=== PATIENT | male | born 1975 | race Caucasian/White ===

== ENCOUNTER 2018-07-11 20:51 | Outpatient (REF) | payer OTHER, SELFPAY ==
[2018-07-11 21:07] LABS: Anion Gap 11.1 mmol/L (3-11); BUN 16 mg/dL (7-18); CO2 30.9 mmol/L (21.0-32.0); Calcium 9.8 mg/dL (8.5-10.1); Chloride 99 mmol/L (98-107); Cholesterol 182 mg/dL (50-200); Glucose 88 mg/dL (70-100); HDL Cholesterol 47 mg/dL (40-60); LDL CHOLESTEROL 115 mg/dL (<100); Potassium 3.8 mmol/L (3.5-5.1); Sodium 141 mmol/L (136-145); Triglyceride 80 mg/dL (30-150)
== END 2018-07-11 21:11 ==
LOC: NCHCN 20:51
PROVIDERS: PCP Nurse Practitioner Family; Visit Provider Physician Assistant Medical
DX: Z00.00 Encounter for general adult medical examination without abnormal findings (principal); Z13.220 Encounter for screening for lipoid disorders; Z13.228 Encounter for screening for other metabolic disorders
CPT/HCPCS: 80048; 80061; 83721

== ENCOUNTER 2018-07-19 12:54 | Outpatient (CLI) | payer OTHER, SELFPAY ==
--- NOTE | 2018-07-19 11:54 | DI.RAD_ITS ---
SYMPTOMS/DIAGNOSIS: BILATERAL ARM AND HAND NUMBNESS CERVICAL SPINE: Odontoid, AP, lateral and bilateral oblique views. There are no priors for comparison. The odontoid is intact. The lateral masses are well aligned. There is normal alignment of the cervical spine. The vertebral bodies, disc spaces and posterior elements are all well maintained. The prevertebral soft tissues are unremarkable. No significant neural foraminal encroachment is present. IMPRESSION: Negative examination. If there concern for radicular systems, an MRI should be considered for further evaluation.
== END 2018-07-19 13:14 ==
PROVIDERS: PCP Nurse Practitioner Family; Visit Provider Nurse Practitioner Family
DX: R20.0 Anesthesia of skin (principal)
CPT/HCPCS: 72050

== ENCOUNTER 2019-02-15 09:41 | Outpatient (CLI) | payer OTHER, SELFPAY ==
--- NOTE | 2019-02-15 09:14 | HPE_ITS ---
Assessment and Plan Assessment and plan (1) Cubital tunnel syndrome, bilateral: Status: Acute Assessment and plan: Plan: Educated patient on surgery covering surgical technique, recovery process, benefits and risks including but not limited to risk of infection, blood clot, damage to soft tissue/blood vessels/nerves in detail. After discussion patient gives verbal understanding of risks and elects to proceed with scheduling surgery. Patient had opportunity to have questions answered to their satisfaction. They will contact office if issues arise. Patient will continue to be scheduled for left ulnar nerve decompression and likely transposition followed approximately 2 weeks later by right ulnar nerve decompression and likely transposition with Dr. Vasques. History of Present Illness Narrative: Mr. Ledbetter is a 43-year-old right hand dominant male who presents to clinic for preoperative exam for ulnar nerve decompression and likely transposition of the left arm shortly followed by right. Patient reports bilateral hand numbness and tingling that has been present for ~8 years. States over the past few months the symptoms have become more constant. 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 Additionally states his hands get tired with work more quickly. Reports he will drop coffee cups if not bracing his hands within the handle, difficulty opening a soda bottle and overall decreased protection analyst. Denies any injuries or trauma. Tried to wear braces at night but due to irritation discontinued. He is unable to rest his arms on armrests due to increased symptoms. Due to his continued symptoms he elected to proceed with surgery. Pertinent Surgical Information Patient reports yearly sinus infections. States currently being treated with azithromycin and will finish course tomorrow. Patient's current symptoms include dry cough as well as clear nasal discharge. States he has improved since starting his antibiotic. Patient denies any additional symptoms currently including fevers, phlegm, sore throat or respiratory symptoms. Denies past medical history of: stroke, cardiac issues, angina, asthma, COPD, sleep apnea, renal issues, liver issues, hepatitis, gastrointestinal issues, ulcers, hyperlipidemia, bleeding disorders, seizures, migraines, anxiety, depression, diabetes, thyroid issues Denies prior complications from surgery or anesthesia. Review of Systems Constitutional Constitutional: Denies fever(s), Denies frequent falls and Denies headache(s) Eyes Eyes: Denies change in vision ENT Ears, Nose, Mouth, and Throat: Denies dizziness, Denies ear discharge, Denies headache(s), Denies epistaxis, Reports nasal discharge (clear discharge seasonally; worse due to current sinus infection) and Denies sore throat Cardiovascular Cardiovascular: Denies chest pain, Denies rapid heart rate, Denies irregular heart rhythm, Denies palpitations, Denies dyspnea, Denies dyspnea on exertion, Denies orthopnea, Denies paroxysmal nocturnal dyspnea and Denies slow heart rate Respiratory Respiratory: Reports cough (current sinus infection; on azithromycin), Denies dyspnea, Denies dyspnea on exertion and Denies wheezing Gastrointestinal Gastrointestinal: Denies abdominal pain, Denies melena, Denies hematochezia, Denies constipation, Denies diarrhea, Denies nausea and Denies vomiting Genitourinary Genitourinary: Denies hematuria, Denies dysuria and Denies urinary urgency Musculoskeletal Musculoskeletal: Reports as per HPI, Reports numbness and Reports tingling Neurologic Neurologic: Denies dizziness, Denies frequent falls, Denies headache(s), Reports numbness and Reports tingling Psychiatric Psychiatric: Denies anxiety and Denies depression Endocrine Endocrine: Denies palpitations Allergic/Immunologic Allergic/Immunologic: Denies wheezing [facility] Medical History Cubital tunnel syndrome, bilateral (Acute) Hypertension (Chronic) Osteogenesis imperfecta Tobacco abuse (Acute) Surgical History (Updated 02/15/19 @ 09:21 by Rosalia Marr) Fracture of middle phalanx of finger of left hand (Inactive 06/02/15) little finger treated with pins Social History (Updated 02/15/19 @ 09:23 by Rosalia Marr) Smoking/Tobacco Use Status: Current every day Tobacco: How many years used: 30 Alcohol Intake: current Alcohol Intake frequency: 0-2 drinks per day Drug use: Never Current gender identity: male Seatbelt use: always Meds Home Medications and Allergies Home Medications Medication Instructions Recorded Confirmed Type multivitamin [One Daily] 1 ea PO DAILY 06/02/15 12/11/18 History chlorthalidone 25 mg tablet 25 mg PO DAILY 02/16/18 12/11/18 History ibuprofen 800 mg tablet 800 mg PO TID #42 tab 07/20/18 12/11/18 Rx azithromycin 250 mg tablet 250 mg PO DAILY 02/15/19 02/15/19 History doxazosin 2 mg tablet 2 mg PO DAILY 02/15/19 02/15/19 History Allergies Allergy/AdvReac Type Severity Reaction Status Date / Time red dye Allergy Mild hives Uncoded 02/15/19 09:24 Exam Const General: cooperative and no acute distress [facility] Head: normal to inspection, normocephalic and atraumatic Ears: external ears normal General nose exam: external nose normal and no nasal discharge Face and sinus: face symmetric Mouth: oral mucosae normal, lip normal, tongue normal and moist mucous membranes Teeth and gingiva: fair dentition Throat: posterior oropharynx normal (no erythema or exudates) Eyes General: appearance normal, both eyes and all related structures Pupils: PERRL EOM: EOM intact bilaterally Neck Neck: trachea midline Carotids: normal carotid upstroke Lymphatic: no lymphadenopathy noted Resp Effort & Inspection: normal respiratory effort and able to speak in complete sentences Auscultation: clear to auscultation bilaterally, no rales, no rhonchi and no wheezes Cardio Heart Sounds: S1 normal, S2 normal and no murmurs Pulses: radial pulses present bilaterally GI Palpation: soft, no hepatosplenomegaly and nontender Auscultation: normal bowel sounds Skin General skin exam: no rashes or lesions noted
== END 2019-02-15 10:01 ==
PROVIDERS: PCP Physician Assistant Medical; Visit Provider Student in an Organized Health Care Education/Training Program
DX: G56.23 Lesion of ulnar nerve, bilateral upper limbs (principal); Z01.818 Encounter for other preprocedural examination
CPT/HCPCS: NC

== ENCOUNTER 2019-02-21 09:19 | Day surgery (SDC) | payer OTHER, SELFPAY ==
[2019-02-15 10:35] VITALS: BP 125/89; PULSE 74; RESP 18; TEMP 37.5; O2SAT 98
--- NOTE | 2019-02-21 07:39 | PDOC.DSDIS_ITS ---
Documented by User: Rosalia Marr 02/21/19 07:44 Discharge Plan Disposition Patient Disposition: HOME Condition: Good Discharge Details Reason For Visit: Left cubital tunnel syndrome Attending Provider: Omid Vasques Primary Care Provider: Sarah Rosales Home Meds and New Rx's Prescriptions: New hydrocodone-acetaminophen 5-325 mg tablet 1 tab PO Q6H PRN (Reason: severe pain) Qty: 14 RF: 0 acetaminophen 500 mg tablet 500 mg PO Q6H PRN (Reason: pain) Qty: 60 RF: 2 ibuprofen 600 mg tablet 600 mg PO TID PRN (Reason: pain) Qty: 60 RF: 2 Continued ibuprofen 800 mg tablet 800 mg PO TID Qty: 42 RF: 0 doxazosin 2 mg tablet 2 mg PO HS RF: 0 multivitamin [One Daily] 1 EACH tablet 1 ea PO DAILY RF: 0 Discontinued azithromycin 250 mg tablet 250 mg PO DAILY RF: 0 Discharge Instructions Additional Instructions: Activity: You should stay in the sling for the first 2 weeks. You may come out of the sling for gentle motion and hygiene but should largely remain in the sling to allow the incision site to heal. Gentle motion of the elbow, hand, wrist, and fingers is okay and encouraged after the first few days, but no repetitive activities nor heavy lifting. You may apply ice. Medications: - You should take Tylenol and Ibuprofen around the clock. - You have been prescribed Hydrocodone for breakthrough pain. Dressings: - The initial surgical dressing should stay in place for 3 days. It may then be removed and kept clean and dry. You should cover with a light gauze dressing. - You may shower after 3 days and get the wound wet. Follow-up: 10-14 days Referrals: Omid Vasques MD [ [facility] STAFF PHYSICIAN] - Equipment/Supplies: Sling Activity:: Activity as Tolerated Remove Dressings/Wound Care:: 72 hours Shower/Bathe:: 72 hours Diet:: As Tolerated Discharge Orders Discharge Orders: Discharge Order (Routine); Ordered 02/21/19 Ordered By: Rosalia Marr DS: Diagnosis Discharge Diagnosis (1) Cubital tunnel syndrome on left: Status: Acute Documented by User: Omid Vasques MD 02/21/19 10:43 Discharge Plan Disposition Patient Disposition: HOME Condition: Good Discharge Details Reason For Visit: Left cubital tunnel syndrome Attending Provider: Omid Vasques Primary Care Provider: Sarah Rosales Home Meds and New Rx's Prescriptions: New hydrocodone-acetaminophen 5-325 mg tablet 1 tab PO Q6H PRN (Reason: severe pain) Qty: 14 RF: 0 acetaminophen 500 mg tablet 500 mg PO Q6H PRN (Reason: pain) Qty: 60 RF: 2 ibuprofen 600 mg tablet 600 mg PO TID PRN (Reason: pain) Qty: 60 RF: 2 Continued ibuprofen 800 mg tablet 800 mg PO TID Qty: 42 RF: 0 doxazosin 2 mg tablet 2 mg PO HS RF: 0 multivitamin [One Daily] 1 EACH tablet 1 ea PO DAILY RF: 0 Discontinued azithromycin 250 mg tablet 250 mg PO DAILY RF: 0 Discharge Instructions Additional Instructions: Activity: You should stay in the sling for the first 2 weeks. You may come out of the sling for gentle motion and hygiene but should largely remain in the sling to allow the incision site to heal. Gentle motion of the elbow, hand, wrist, and fingers is okay and encouraged after the first few days, but no repetitive activities nor heavy lifting. You may apply ice. Medications: - You should take Tylenol and Ibuprofen around the clock. - You have been prescribed Hydrocodone for breakthrough pain. Dressings: - The initial surgical dressing should stay in place for 3 days. It may then be removed and kept clean and dry. You should cover with a light gauze dressing. - You may shower after 3 days and get the wound wet. Follow-up: 10-14 days Referrals: Omid Vasques MD [ [facility] STAFF PHYSICIAN] - Equipment/Supplies: Sling Activity:: Activity as Tolerated Remove Dressings/Wound Care:: 72 hours Shower/Bathe:: 72 hours Diet:: As Tolerated Discharge Orders Discharge Orders: Discharge Order (Routine); Ordered 02/21/19 Ordered By: Rosalia Marr
[2019-02-21 09:30] VITALS: BP 135/98; PULSE 73; RESP 18; TEMP 36.6; O2SAT 100
[2019-02-21] MEDS: Lactated Ringers 1,000 ML 80 ML IV (09:55)
[2019-02-21] MEDS: ceFAZolin 2 GM/50 ML BAG IVPB (11:10)
[2019-02-21 11:49] VITALS: BP 109/56; PULSE 82; RESP 14; TEMP 36.8; O2SAT 96
[2019-02-21 11:54] VITALS: BP 122/77; PULSE 81; RESP 14; TEMP 36.8; O2SAT 98
[2019-02-21 11:59] VITALS: BP 123/78; PULSE 74; RESP 11; TEMP 36.8; O2SAT 98
[2019-02-21 12:10] VITALS: BP 131/81; PULSE 76; RESP 12; TEMP 36.8; O2SAT 99
[2019-02-21 12:52] VITALS: BP 121/85; PULSE 70; RESP 16; TEMP 37.1; O2SAT 98
--- NOTE | 2019-02-21 22:36 | W.PM.OP ---
Date of service: 02/21/19 Time of Service: 13:36 Operative Note Operative Note DATE OF PROCEDURE: 02/21/19 PRE-OP DIAGNOSIS: Left cubital tunnel syndrome POST-OP DIAGNOSIS: same PROCEDURE: Left Cubital Tunnel Decompression SURGEON: Omid Vasques COMMUNICATIONS EXECUTIVE: Silvana Thurman ANESTHESIA: GETA ESTIMATED BLOOD LOSS: 0 PATHOLOGY: none sent TOURNIQUET TIME: 20 COMPLICATIONS: None Patient was transported to: PACU Patient's condition: stable Indications: Babak is a 43-year-old male who has had symptoms of cubital tunnel syndrome. Nonoperative treatment options had been trialed. Nerve conduction studies identified the cubital tunnel as the point of compression. Given failure of nonoperative treatments and persistent symptoms, I offered operative intervention. I reviewed the technical details of a cubital tunnel decompression with possible anterior subcutaneous transposition. I reviewed the risk of the procedure to include bleeding, infection, pain, stiffness, tendon instability, damage to the superficial radial nerve, and complete release. Despite these risks, the patient elected to proceed. Findings: There was a tightened cubital tunnel. The ulnar nerve was release from the first motor branch distally through the [place] proximally. Procedure Description: Babak was greeted in the preoperative holding area. Name and surgical site were confirmed. The history and physical was completed. The consent was reviewed the patient and signed. He was taken back to the operating room. The patient was placed in the supine positioned and a general anesthetic was administered. The left arm was then prepped with ChloraPrep and draped in a standard fashion after a nonsterile tourniquet was placed high up into the axilla of the arm. Prophylactic antibiotics in the form of cefazolin were administered. A timeout was performed for safe surgery. The surgical site was drawn on the skin as was the lateral epicondyle borders. The planned surgical field was anesthetized with 0.25% bupivacaine with epinephrine. The limb was exsanguinated and the tourniquet was inflated where it stayed for 20 minutes. A 8 cm incision was made curvilinearly around the medial elbow. The skin was incised only. The deep tissue subcutaneous fat was dissected with a tenotomy scissors trying to protect any branches of the medial antebrachial cutaneous nerve. Any branches that were identified were retracted out of the way. The ulnar nerve was palpated and identified. A small window into the cubital tunnel was created and the nerve is able to be palpated with the [place]. A Metzenbaum scissor was then used to open up the she is starting with the Camara's ligament. I then worked distal over the ulnar nerve releasing any constraints against the nerve all the way to the fascia of the FCU muscle belly. This muscle belly was bluntly all the way down to the first motor branch of the ulnar nerve. Likewise starting there at the lateral condyle proceeded working proximally to release any constraints over the ulnar nerve. This was taken all the way to the arcade of [place]. The medial intermuscular septum was also palpated in any sharp edges against the ulnar nerve were resected. After fully releasing the nerve it was inspected visually. I was also able to palpate the nerve fully and reach one finger up into the proximal distal aspects to make sure there is no constraints against the nerve. A freer elevator was also used to slide easily against the ulnar nerve without any points of constriction. The arm was then taken through range of motion. The ulnar nerve did not sublux/dislocate out of its groove behind the lateral epicondyle. Therefore, no transposition was performed. The tourniquet was then deflated. Any areas of bleeding were cauterized with bipolar electrocautery. The wound was thoroughly irrigated. The deep tissue was closed with a 3-0 Vicryl. The skin was closed with a 4-0 nylon. The wound was dressed with Xeroform, 4 x 4's, ABD, Kerlix and an Vamsi wrap. She was placed into a sling. The patient was transferred back to same day surgery area in stable condition.
== END 2019-02-21 13:14 | disposition home or self-care (01) ==
LOC: SUR 09:19
PROVIDERS: PCP Physician Assistant Medical; Visit Provider Student in an Organized Health Care Education/Training Program
PROC: (CPT 64718; principal; 2019-02-21 11:45)
DX: G56.22 Lesion of ulnar nerve, left upper limb (principal); Y99.0 Civilian activity done for income or pay
CPT/HCPCS: 64718; J0690; J2001; J2250; J2704; J3010; L3650

== ENCOUNTER 2019-04-04 08:33 | Day surgery (SDC) | payer OTHER, SELFPAY ==
--- NOTE | 2019-04-04 07:27 | PDOC.DSDIS_ITS ---
Discharge Plan Disposition Patient Disposition: HOME Condition: Good Discharge Details Reason For Visit: right cubital tunnel syndrome Attending Provider: Omid Vasques Primary Care Provider: Sarah Rosales Home Meds and New Rx's Prescriptions: New hydrocodone-acetaminophen 5-325 mg tablet 1 tab PO Q6H PRN (Reason: severe postoperative pain) Qty: 12 RF: 0 acetaminophen 500 mg tablet 500 mg PO Q6H PRN (Reason: pain) Qty: 60 RF: 2 ibuprofen 600 mg tablet 600 mg PO TID PRN (Reason: pain) Qty: 60 RF: 2 Continued acetaminophen 500 mg tablet 500 mg PO Q6H PRN (Reason: pain) Qty: 60 RF: 2 ibuprofen 600 mg tablet 600 mg PO TID PRN (Reason: pain) Qty: 60 RF: 2 ibuprofen 800 mg tablet 800 mg PO TID Qty: 42 RF: 0 doxazosin 2 mg tablet 2 mg PO HS RF: 0 multivitamin [One Daily] 1 EACH tablet 1 ea PO DAILY RF: 0 Discontinued hydrocodone-acetaminophen 5-325 mg tablet 1 tab PO Q6H MDD 20 mg PRN (Reason: severe pain) Qty: 14 RF: 0 Discharge Instructions Additional Instructions: Activity: You should stay in the sling for the first 2 weeks. You may come out of the sling for gentle motion and hygiene but should largely remain in the sling to allow the incision site to heal. Gentle motion of the elbow, hand, wrist, and fingers is okay and encouraged after the first few days, but no repetitive activities nor heavy lifting. You may apply ice. Medications: - You should take Tylenol and Ibuprofen around the clock. - You have been prescribed Hydrocodone for breakthrough pain. Dressings: - The initial surgical dressing should stay in place for 3 days. It may then be removed and kept clean and dry. You should cover with a light gauze dressing. - You may shower after 3 days and get the wound wet. Follow-up: 10-14 days Referrals: Omid Vasques MD [ [facility] STAFF PHYSICIAN] - Equipment/Supplies: Sling Activity:: Elevate Remove Dressings/Wound Care:: 72 hours Shower/Bathe:: 72 hours Diet:: As Tolerated Discharge Orders Discharge Orders: Discharge Order (Routine); Ordered 02/19/20 Ordered By: Rosalia Marr DS: Diagnosis Discharge Diagnosis (1) Cubital tunnel syndrome on right: Status: Acute
[2019-04-04 08:40] VITALS: BP 126/90; PULSE 67; RESP 17; TEMP 37; O2SAT 100
[2019-04-04] MEDS: Lactated Ringers 1,000 ML 80 ML IV (09:11)
[2019-04-04] MEDS: ceFAZolin 2 GM/50 ML BAG IVPB (10:03)
[2019-04-04] MEDS: Bupivacaine 0.25% Pres-Free 30 ML VIAL (10:49)
[2019-04-04 11:02] VITALS: BP 123/89; PULSE 78; RESP 14; TEMP 36.4; O2SAT 99
[2019-04-04 11:07] VITALS: BP 125/90; PULSE 78; RESP 13; TEMP 36.4; O2SAT 99
[2019-04-04 11:12] VITALS: BP 137/87; PULSE 74; RESP 15; TEMP 36.4; O2SAT 100
[2019-04-04 11:26] VITALS: BP 136/97; PULSE 74; RESP 12; TEMP 36.5; O2SAT 100
[2019-04-04 12:03] VITALS: BP 124/85; PULSE 73; RESP 16; TEMP 36.5; O2SAT 98
--- NOTE | 2019-04-05 06:44 | ROE_ITS ---
Date of service: 04/04/19 Time of Service: 11:44 Operative Note Operative Note DATE OF PROCEDURE: 04/04/19 PRE-OP DIAGNOSIS: Right Cubital Tunnel Syndrome POST-OP DIAGNOSIS: same PROCEDURE: Right In Situ Cubital Tunnel Decompression SURGEON: Omid Vasques INFORMATION SYSTEMS OPERATOR: Rosalia Marr ANESTHESIA: ALLEN ESTIMATED BLOOD LOSS: 0 PATHOLOGY: none sent TOURNIQUET TIME: 14 COMPLICATIONS: None Patient was transported to: PACU Patient's condition: stable Indications: Babak is a 44yo male who has had symptoms of cubital tunnel syn drome. Nonoperative treatment options had been trialed. Nerve conduction studies identified the cubital tunnel as the point of compression. Given failure of nonoperative treatments and persistent symptoms, I offered operative intervention. I reviewed the technical details of a cubital tunnel decompression with possible anterior subcutaneous transposition. I reviewed the risk of the procedure to include bleeding, infection, pain, stiffness, tendon instability, damage to the superficial radial nerve, and complete release. Despite these risks, the patient elected to proceed. Findings: There was a tightened cubital tunnel. The ulnar nerve was release from the first motor branch distally through the [place] proximally. Procedure Description: Babak was greeted in the preoperative holding area. Name and surgical site were confirmed. The history and physical was completed. The consent was reviewed the patient and signed. He was taken back to the operating room. The patient was placed in the supine positioned and a general anesthetic was administered. The right was then prepped with ChloraPrep and draped in a standard fashion after a nonsterile tourniquet was placed high up into the axilla of the arm. Prophylactic antibiotics in the form of cefazolin were administered. A timeout was performed for safe surgery. The surgical site was drawn on the skin as was the lateral epicondyle borders. The planned surgical field was anesthetized with 0.25% bupivacaine with epinephrine. The limb was exsanguinated and the tourniquet was inflated where it stayed for 14 minutes. A 6 cm incision was made curvilinearly around the medial elbow. The skin was incised only. The deep tissue subcutaneous fat was dissected with a tenotomy scissors trying to protect any branches of the medial antebrachial cutaneous nerve. Any branches that were identified were retracted out of the way. The ulnar nerve was palpated and identified. A small window into the cubital tunnel was created and the nerve is able to be palpated with the [place]. A Metzenbaum scissor was then used to open up the she is starting with the Camara's ligament. I then worked distal over the ulnar nerve releasing any constraints against the nerve all the way to the fascia of the FCU muscle belly. This muscle belly was bluntly all the way down to the first motor branch of the ulnar nerve. Likewise starting there at the lateral condyle proceeded working proximally to release any constraints over the ulnar nerve. This was taken all the way to the arcade of [place]. The medial intermuscular septum was also palpated in any sharp edges against the ulnar nerve were resected. After fully releasing the nerve it was inspected visually. I was also able to palpate the nerve fully and reach one finger up into the proximal distal aspects to make sure there is no constraints against the nerve. A freer elevator was also used to slide easily against the ulnar nerve without any points of constriction. The arm was then taken through range of motion. The ulnar nerve did not sublux/dislocate out of its groove behind the lateral epicondyle. Therefore, no transposition was performed. The tourniquet was then deflated. Any areas of bleeding were cauterized with bipolar electrocautery. The wound was thoroughly irrigated. The deep tissue was closed with a 3-0 Vicryl. The skin was closed with a 4-0 nylon. The wound was dressed with Xeroform, 4 x 4's, ABD, Kerlix and an Vamsi wrap. She was placed into a sling. The patient was transferred back to same day surgery area in stable condition.
== END 2019-04-04 12:39 | disposition home or self-care (01) ==
LOC: SUR 08:33
PROVIDERS: PCP Physician Assistant Medical; Visit Provider Student in an Organized Health Care Education/Training Program
PROC: (CPT 64718; principal; 2019-04-04 10:15)
DX: G56.21 Lesion of ulnar nerve, right upper limb (principal)
CPT/HCPCS: 64718; J0690; J1100; J1885; J2001; J2250; J2405; J2704; J3010

== ENCOUNTER 2020-05-21 02:04 | Outpatient (CLI) | payer OTHER, SELFPAY ==
--- NOTE | 2020-05-21 14:06 | DI.RAD_ITS ---
EXAM: XR HIP LT AP LAT ONLY CLINICAL HISTORY: LT HIP PAIN. TECHNIQUE: 2D digital imaging was performed. COMPARISON: No exams were available for comparison FINDINGS: There is mild hip joint space narrowing. There is mild acetabular spurring. No soft tissue calcific ations are seen. IMPRESSION: Mild degenerative changes. DATA REPOSITORY: RADIATION DOSE DELIVERED:
== END 2020-05-21 02:24 ==
PROVIDERS: PCP Physician Assistant Medical; Visit Provider Chiropractor Orthopedic
DX: M25.552 Pain in left hip (principal); M16.12 Unilateral primary osteoarthritis, left hip
CPT/HCPCS: 73502

== ENCOUNTER 2020-06-05 14:12 | Inpatient (IN) | payer OTHER, SELFPAY ==
[2020-06-05] VITALS (29 sets, daily range): BP systolic 143–179; BP diastolic 91–110; PULSE 62–111; RESP 9–45; TEMP 36.4–36.7; O2SAT 93–99
--- NOTE | 2020-06-05 14:45 | DI.RAD_ITS ---
EXAM: XR FEMUR LT . CLINICAL HISTORY: fall/pain. TECHNIQUE: 2D digital imaging was performed. COMPARISON: No exams were available for comparison FINDINGS: There is a subcapital fracture of the left hip. Right hip appears unremarkable. No other obvious pelvic fractures IMPRESSION: Subcapital fracture left hip. DATA REPOSITORY: RADIATION DOSE DELIVERED:
--- NOTE | 2020-06-05 14:49 | DI.RAD_ITS ---
EXAM: XR PELVIS AP CLINICAL HISTORY: fall/pain. TECHNIQUE: 2D digital imaging was performed. COMPARISON: No exams were available for comparison FINDINGS: There is a subcapital fracture of the left hip. Right hip unremarkable. No other pelvic fractures s een although the patient appears slightly rotated. IMPRESSION: Left hip subcapital fracture. DATA REPOSITORY: RADIATION DOSE DELIVERED:
--- NOTE | 2020-06-05 15:00 | RT.EKG_ITS ---
APPROVED REPORT Exam: Resting ECG Patient Location: E HR:93 bpm ECG Measurements Heart Rate 93 AXIS NC 163 P 76 QRSd 95 QRS 169 QT 348 T 49 QTc 434 Conclusion Sinus rhythm...normal P axis, V-rate 60- 99 Right axis deviation...QRS axis (100,269)
--- NOTE | 2020-06-05 15:11 | W.ED.GENAD ---
Discharge Plan Disposition Patient Disposition: STILL A PATIENT Condition: Serious Discharge Details Clinical Impression: Fracture of left hip Primary Care Provider: Sarah Rosales ED Provider: Zeina Sahu Home Meds and New Rx's Prescriptions: No Action naproxen sodium [Aleve] 220 mg capsule 440 mg PO BID PRNRF: 0 Medical Decision Making <PAULO Marquez - Last Filed: 06/05/20 15:51> 45-year-old male with osteogenesis imperfecta presents complaining of left hip pain status post mechanical slip and fall. Denies any other distracting injuries. Given his abrasions, will update his tetanus today. Given his shortening and external rotation, high suspicion of fracture. Will obtain hip, pelvis, femur x-ray. Obtain IV access, routine laboratory values, IV fluid and IV Dilaudid X-rays reveal a left femoral neck fracture. Discussed x-ray findings with patient Case discussed with Dr. Vasques who is agreeable to admission but we need to check the bed status. I spoke with our housekeeper and laundry assistant and it is unclear whether a bed is available, will likely know more in the next hour or so. I did update Dr. Vasques on the bed status. I will consult with anesthesia for a block to help with his discomfort. Patient will be held here until we have clear information regarding bed status. Anesthesia consult and block pending. Laboratory values pending. Patient care signed out PAULO Sahu pending clear disposition whether that be admission to our facility under the care of Dr. Vasques or transfer to a higher level of care if our bed status is at capacity Medical Records Medical records reviewed: Yes I reviewed the patient's medical records. Imaging Data Radiologic Study: Attestation: I personally reviewed and interpreted this imaging study as follows: Imaging: X-Ray Radiologist's impression: Left hip, pelvis, femur read by radiology as subcapital fracture of left Lab Data Lab results reviewed: Yes I reviewed the patient's lab results. Labs: Laboratory Tests Range/Units 06/05/20 15:30 WBC (4.4-10.8) 10^3/uL 16.26 H RBC (4.36-5.78) 10^6/uL 4.58 Hgb (13.5-17.5) g/dL 14.6 Hct (40.0-50.0) % 42.6 MCV (80-95) fL 93.0 MCH (27.0-33.0) pg 31.9 MCHC (32.0-36.0) % 34.3 RDW (11.8-14.1) % 13.1 Plt Count (130-400) 10^3/uL 302 MPV (8.0-11.0) fL 9.9 Immature Gran % 0.4 Neutrophils % 79.9 Lymphocytes % 11.4 Monocytes % 7.4 Eosinophils % 0.7 Basophils % 0.2 Nucleated RBC % % 0 Absolute Neutrophils (1.2-6.7) 10^3/uL 12.99 H Absolute Lymphocytes (1.2-3.4) 10^3/uL 1.85 Absolute Monocytes (0.1-0.8) 10^3/uL 1.20 H Absolute Eosinophils (0.0-0.7) 10^3/uL 0.11 Absolute Basophils (0.0-0.2) 10^3/uL 0.03 ECG Data Attestation: I personally reviewed and interpreted this ECG (s) as follows: Interpretation: Please see official report by Dr. Saavedra. Sinus rhythm, ventricular rate of 93. No STEMI <PAULO Zuniga - Last Filed: 06/05/20 18:55> Care signed out to me from Jacob Davila, physician assistant professor nurse education 1600 Patient had a Siddiqi catheter placed for comfort He will be admitted by Dr. Vasques, orthopedic MD Vitals remained stable, additional dose of Dilaudid administered for comfort HPI <PAULO Marquez - Last Filed: 06/05/20 15:51> General Mode of arrival: wheelchair. Date/Time Provider Initiated Documentation: 06/05/20 14:45. Limitations to Documentation: no limitations. Information obtained by: patient. HPI Narrative: This is a 45-year-old male, past medical history of osteogenesis imperfecta, smoker, hypertension. He reports a mechanical slip and fall, twisting mechanism, injuring his left hip. He reports the pain is severe, unable to bear weight. He also reports abrasions to his left hand and left face because when he fell his coffee cup broke. He denies any head injury, headache, LOC, neck pain, chest pain, shortness of breath, abdominal pain, nausea, vomiting, incontinence, numbness, tingling, weakness he has not taken any medication for his pain. He reports that he has been having some issues with that hip in general and is being evaluated by orthopedics but has never had any surgery on that hip. He is unsure of his last tetanus. We were able to evaluate his tetanus status and his last update was 2012. Related Data Home Medications Medication Instructions Recorded Confirmed naproxen sodium 220 mg capsule 440 mg PO BID PRN cap 06/02/20 06/05/20 Allergies Allergy/AdvReac Type Severity Reaction Status Date / Time red dye Allergy Mild hives Uncoded 06/05/20 14:37 General Stated Complaint: Orthopedic ENRIQUE: 3 Review of Systems <PAULO Marquez - Last Filed: 06/05/20 15:51> Constitutional Constitutional: Denies fatigue, Denies headache(s) and Denies weakness ENT Ears, Nose, Mouth, and Throat: Denies headache(s) and Denies neck pain Cardiovascular Cardiovascular: Denies chest pain and Denies dyspnea Respiratory Respiratory: Denies cough and Denies dyspnea Gastrointestinal Gastrointestinal: Denies abdominal pain, Denies nausea and Denies vomiting Genitourinary Genitourinary: Denies urinary incontinence Musculoskeletal Musculoskeletal: Denies back pain, Reports arthralgias, Denies neck pain, Denies numbness and Denies tingling Integumentary/Breasts Skin/Breast: Denies rash Neurologic Neurologic: Denies headache(s), Denies numbness, Denies tingling and Denies weakness Endocrine Endocrine: Denies fatigue PFSH <PAULO Marquez - Last Filed: 06/05/20 15:51> Medical History (Updated 06/05/20 @ 17:03 by Omid Vasques MD) Hypertension Osteogenesis imperfecta Tobacco abuse Surgical History Cubital tunnel syndrome on left s/p Decompression 02/21/2019 Cubital tunnel syndrome on right s/p Decompression 04/04/2019 Fracture of middle phalanx of finger of left hand (06/02/15) little finger treated with pins Social History Smoking/Tobacco Use Status: Current every day Tobacco: How many years used: 30 Smoking risk assessment performed?: Yes Alcohol Intake: current Alcohol Intake frequency: 0-2 drinks per day Alcohol type: beer Drug use: Never Substance use type: does not use 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 Current gender identity: male Seatbelt use: always Do you feel safe at home: Yes Do you feel safe in your relationship?: Yes Exam <PAULO Marquez - Last Filed: 06/05/20 15:51> Const General: cooperative, healthy appearing, no acute distress and in distress Orientation: alert, awake and oriented x3 HENMT Head: normal to inspection, normocephalic and atraumatic Mouth: moist mucous membranes Eyes General: appearance normal, both eyes and all related structures Conjunctivae: conjunctivae normal Neck Neck: normal visual inspection, full ROM, trachea midline, supple and nontender Resp Effort & Inspection: normal respiratory effort and able to speak in complete sentences Auscultation: clear to auscultation bilaterally Cardio Rate: regular rate Rhythm: regular rhythm GI Palpation: soft and nontender Back/Spine/Pelvis Back: No back tenderness Skin General skin exam: no rashes or lesions noted Neuro General: patient alert, patient awake, moves all extremities and no focal motor deficits Cognition: normal cognition Speech: speech normal Motor: muscle tone normal throughout Sensory Exam: no sensory deficits noted Extrem Other: Abrasions to left hand. Right upper extremity and right lower extremity unremarkable. Left leg is slightly shortened and externally rotated. Diffuse hip discomfort across the lateral and anterior aspect. Normal capillary refill and pedal pulse. Knee, lower leg, ankle, foot unremarkable. Psych Appearance: grossly normal Mental Status: mental status grossly normal Course <PAULO Marquez - Last Filed: 06/05/20 15:51> Vital Signs Vital signs: Vital Signs Temperature 36.5 C 06/05/20 14:32 Pulse 88 06/05/20 14:32 Respiratory Rate 18 06/05/20 14:32 Blood Pressure 179/99 H 06/05/20 14:32 Pulse Oximetry 99 06/05/20 14:32 Temperature 36.5 C 06/05/20 14:32 Temperature Source Temporal Artery Scan 06/05/20 14:32 Pulse 88 06/05/20 14:32 Respiratory Rate 18 06/05/20 14:32 Respiratory Effort Non-Labored 06/05/20 14:35 Blood Pressure 179/99 H 06/05/20 14:32 Blood Pressure Position Supine 06/05/20 14:32 Pulse Oximetry 99 06/05/20 14:32 Oxygen Delivery Method Room Air 06/05/20 14:32 Oxygen Flow Rate 0 06/05/20 14:32 Pain Level 10 06/05/20 14:38 Sign Out <PAULO Marquez - Last Filed: 06/05/20 15:51> Sign Out Data: Sign Out Comment: Osteogenesis imperfecta. Left hip subcapital fracture. Patient will need either admission or transfer for definitive care. Dr. Vasques aware situation, currently awaiting bed status update. Also awaiting anesthesia for nerve block Last updated by Jacob Davila PA at 06/05/20 15:50
[2020-06-05] MEDS: Normal Saline 1,000 ML 1000 ML IV (15:35)
[2020-06-05 15:37] LABS: Abs Immature Grans 0.07 10^3/uL (0.0-0.06); Absolute Eosinophil Count 0.11 10^3/uL (0.0-0.7); Absolute Lymphocyte Count 1.85 10^3/uL (1.2-3.4); Absolute Neutrophil Count 12.99 10^3/uL (1.2-6.7); Basophils % 0.2; Eosinophils % 0.7; HCT 42.6 % (40.0-50.0); HGB 14.6 g/dL (13.5-17.5); Immature Grans % 0.4; Lymphocytes % 11.4; MCH 31.9 pg (27.0-33.0); MCHC 34.3 % (32.0-36.0); MPV 9.9 fL (8.0-11.0); Monocytes % 7.4; Neutrophils % 79.9; Nucleated RBC 0 %; Platelet Count 302 10^3/uL (130-400); RBC 4.58 10^6/uL (4.36-5.78); RDW 13.1 % (11.8-14.1); RDW-SD 44.2 fL; WBC 16.26 10^3/uL (4.4-10.8)
[2020-06-05] MEDS: HYDROmorphone 2 MG/ML VIAL 1 MG IVP ×2 (15:37→17:33)
[2020-06-05 15:38] LABS: Absolute Basophil Count 0.03 10^3/uL (0.0-0.2)
[2020-06-05 15:51] LABS: PTT Activated 25.6 sec (21.0-27.5); Prothrombin Time 10.4 sec (9.3-11.0)
[2020-06-05 15:52] LABS: ALT 21 U/L (16-63); AST 15 U/L (15-37); Albumin 4.2 g/dL (3.4-5.0); Alkaline Phosphatase 71 U/L (46-116); Anion Gap 9.2 mmol/L (3-11); BUN 13 mg/dL (7-18); Bilirubin, Total 0.5 mg/dL (0.2-1.0); CO2 26.8 mmol/L (21.0-32.0); CREATININE 0.9 mg/dL (0.70-1.30); Calcium 9.4 mg/dL (8.5-10.1); Chloride 105 mmol/L (98-107); Glucose 98 mg/dL (74-106); Potassium 3.5 mmol/L (3.5-5.1); Sodium 141 mmol/L (136-145); Total Protein 8.1 g/dL (6.4-8.2)
[2020-06-05] MEDS: Lidocaine 2% Jelly 11 ML SYR UR (16:40)
--- NOTE | 2020-06-05 19:34 | W.ORTHOCONSU ---
Date of service: 06/05/20 Time of Service: 15:51 History of Present Illness History of Present Illness Chief Complaint: Left Hip Pain Narrative: Babak is a 45-year-old who I know from previous ailments and surgeries. He reports that over the last 4 weeks or so he has had increasing pain of his left hip. He has required the use of a cane. He has seen Dr. Ram, chiropractor, for these complaints. He actually saw me earlier today for a separate ailment and was make an appointment to discuss his left hip. Unfortunately, this afternoon he slipped and fell twisting his left leg and falling down. He had immediate pain and was unable to bear weight. He presented to the emergency department and was diagnosed with a displaced subcapital femoral neck fracture. He denies any numbness or tingling. He denies any low back pain. He does have a mild form of osteogenesis imperfecta, having multiple fractures throughout his lifetime but all with some antecedent trauma. He otherwise has no major medical issues. He denies chest pain or shortness of breath. He denies any sick contacts or COVID-19 exposures. Consults Consult date: 06/05/20 Requesting physician: Jacob Davila Consult Reason Left subcapital femoral neck fracture Assessment and Plan Assessment and plan (1) Closed subcapital fracture of neck of left femur: Status: Acute Assessment and plan: Babak is a 45-year-old who suffered a mechanical fall the day leading to a subcapital femoral neck fracture. Given that it is displaced, I would recommend performing a hip replacement. He is only 45 years old, however, given his issue with premorbid left hip pain as well as his diagnosis of osteogenesis imperfecta, replacement would likely be a better option. In a quick review of the literature, there are increasing complications, mostly with loosening and the cemented implants. Given he does not have the more severe types of osteogenesis imperfecta nor does he have any long bone deformity, I would perform a cementless implant. However, this does carry the risk of fracture. I reviewed this with Tyrone and he does 1 to proceed with hip replacement. I will admitted to my service and plan for hip replacement by an anterior approach tomorrow. He will be n.p.o. after midnight. He will likely work with PT following this and discharged home the following day. I reviewed the risk of the procedure to include bleeding, infection, pain, stiffness, fracture, hardware loosening, component malposition, damage to nerves and vessels, blood clot, leg with inequality. Despite these risk, he elects to proceed. All initial labs are within normal limits except for leukocytosis which is likely a stress response. We will obtain COVID-19 testing as well. Qualifiers: Encounter type: initial encounter Qualified Code(s): S72.012A - Unspecified intracapsular fracture of left femur, initial encounter for closed fracture Review of Systems All systems reviewed & are unremarkable except as noted in HPI and below [facility] Medical History (Updated 06/05/20 @ 20:16 by Omid Vasques MD) Hypertension Osteogenesis imperfecta Tobacco abuse Surgical History Cubital tunnel syndrome on left s/p Decompression 02/21/2019 Cubital tunnel syndrome on right s/p Decompression 04/04/2019 Fracture of middle phalanx of finger of left hand (06/02/15) little finger treated with pins Social History Smoking/Tobacco Use Status: Current every day Tobacco: How many years used: 30 Smoking risk assessment performed?: Yes Alcohol Intake: current Alcohol Intake frequency: 0-2 drinks per day Alcohol type: beer Drug use: Never Substance use type: does not use current occupation: cabinet professional Current gender identity: male Seatbelt use: always Do you feel safe at home: Yes Do you feel safe in your relationship?: Yes Exam Narrative Exam Narrative: Babak is resting in the hospital stretcher. He is in some pain but no acute distress. Alert and orient x3. Head is normocephalic and atraumatic. Evaluation of left leg shows a shortened and externally rotated limb. No skin defects. He is able demonstrate active dorsiflexion and plantarflexion of the foot with inversion eversion of the ankle. Sensation intact light touch over the femoral nerve and static nerve distributions. No pain to palpation throughout the distal thigh, knee, or leg. Per Jacob Davila's exam he has regular rate and rhythm and his lungs are clear to auscultation bilaterally. Results Last Vital Signs Temp 36.5 C 06/05/20 14:32 Pulse 75 06/05/20 18:31 Resp 18 06/05/20 18:31 BP 143/92 H 06/05/20 18:31 Pulse Ox 95 06/05/20 18:31 Labs Result diagrams: 06/05/20 15:30 06/05/20 15:30 Labs: Laboratory Results - last 24 hr 06/05/20 06/05/20 06/05/20 15:30 15:30 15:30 WBC 16.26 H RBC 4.58 Hgb 14.6 Hct 42.6 MCV 93.0 MCH 31.9 MCHC 34.3 RDW 13.1 Plt Count 302 MPV 9.9 Immature Gran % 0.4 Neutrophils % 79.9 Lymphocytes % 11.4 Monocytes % 7.4 Eosinophils % 0.7 Basophils % 0.2 Nucleated RBC % 0 Absolute Neutrophils 12.99 H Absolute Lymphocytes 1.85 Absolute Monocytes 1.20 H Absolute Eosinophils 0.11 Absolute Basophils 0.03 PT 10.4 INR 1.0 APTT 25.6 Sodium 141 Potassium 3.5 Chloride 105 Carbon Dioxide 26.8 Anion Gap 9.2 BUN 13 Creatinine 0.9 Estimated GFR/1.73 m2 >= 60.00 Glucose 98 Calcium 9.4 Total Bilirubin 0.5 AST 15 ALT 21 Alkaline Phosphatase 71 Total Protein 8.1 Albumin 4.2 COVID-19 Source 06/05/20 17:15 WBC RBC Hgb Hct MCV MCH MCHC RDW Plt Count MPV Immature Gran % Neutrophils % Lymphocytes % Monocytes % Eosinophils % Basophils % Nucleated RBC % Absolute Neutrophils Absolute Lymphocytes Absolute Monocytes Absolute Eosinophils Absolute Basophils PT INR APTT Sodium Potassium Chloride Carbon Dioxide Anion Gap BUN Creatinine Estimated GFR/1.73 m2 Glucose Calcium Total Bilirubin AST ALT Alkaline Phosphatase Total Protein Albumin COVID-19 Source Nasopharyx Imaging Imaging Studies: X-ray of the left hip and femur from today were reviewed. These demonstrate a displaced subcapital femoral neck fracture with shortening of the left hip. The fracture is right through the far subcapital region, proximal neck. There are some chronic changes about the hip joint which are seen on previous x-rays. X-ray of the left hip and pelvis from a few weeks ago were also reviewed. These do show some joint space narrowing of the left hip with subchondral sclerosis and mild periarticular spurring. In retrospect, there is some abnormality appears like on the far lateral aspect of the superior femoral neck. I do not see any connecting fracture line. No suspicious lesions identified.
[2020-06-05] MEDS: Acetaminophen 500 MG TAB 1000 MG PO (21:05)
[2020-06-05 21:14] LABS: COVID-19 PCR Negative (Negative)
[2020-06-05] MEDS: oxyCODONE 5 MG TAB PO (23:27)
[2020-06-06] VITALS (15 sets, daily range): BP systolic 62–145; BP diastolic 33–90; PULSE 51–77; RESP 12–19; TEMP 36–36.8; O2SAT 97–100
[2020-06-06] MEDS: Ondansetron 4 MG/2 ML VIAL IVP (01:40)
[2020-06-06] MEDS: Normal Saline Flush 10 ML SYR ×2 (01:40→18:39)
[2020-06-06] MEDS: Lactated Ringers 1,000 ML 80 ML IV ×4 (01:43→22:43)
[2020-06-06] MEDS: Ketorolac 15 MG/ML VIAL IVP (06:20)
--- NOTE | 2020-06-06 07:19 | PGE_ITS ---
Date of Service Date of service: 06/06/20 Time of Service: 07:19 Assessment and Plan Assessment and plan (1) Closed subcapital fracture of neck of left femur: Status: Acute Assessment and plan: Babak is a 45-year-old who fractured his left hip yesterday. He has a displaced subcapital femoral neck fracture in the setting of osteogenesis imperfecta and premorbid hip pain. The x-rays performed a few weeks ago when he was having worsening pain of his left hip do show some arthritic change within the left hip. On hindsight there could have been some change to the superior lateral aspect of the femoral neck but is unclear. Either way, he was having symptoms prior to this and I do think given the fracture and its displacement, premorbid symptoms, and his age, the best route for ultimate treatment will be a hip replacement. He is only 45 years old, however, the success of open reduction and fixation of this femoral neck fracture is much less than hip replacement. I reviewed the 2 treatment options with him and he does agree that hip replacement seems to be the best option for him. I did discuss the inherent risk of hip replacement surgery including bleeding, infection, pain, stiffness, damage to nerves and vessels, damage to muscles and tendons, leg length inequality, fracture, hardware loosening or failure, blood clot. I did review the literature with Babak which shows osteogenesis imperfecta patient is doing well after hip replacement although with an increased risk of failure. Interestingly, the majority of failure modes were loosening of components rather than fracture. Additionally, the studies included all types of osteogenesis imperfecta, which does include quite spectrum. Babak has had no spontaneous fractures. He has had multiple f ractures but always some level of trauma. He is very active with weightbearing without assistance and therefore I do expect his risk of fracture to be quite low, but possibly greater than if he did not have osteogenesis imperfecta. He understands this risk and how if there is a fracture at the time of surgery this will require additional fixation. Once again, I reviewed the statical details and the risk. All of his questions were answered. We will proceed with anterior hip replacement today. He should be n.p.o. Cefazolin and tranexamic acid on hold for the OR. Qualifiers: Encounter type: initial encounter Qualified Code(s): S72.012A - Unspecified intracapsular fracture of left femur, initial encounter for closed fracture Subjective Subjective Interval history since last seen: Babak was able to rest some last night. He does feel that the block helped out with some of the pain although he does get intermittent cramping and grabbing sensation around the left hip which does cause pain and discomfort. He has not gotten out of the bed. He has had a Siddiqi catheter placed. He denies chest pain or shortness of breath. He denies any new symptoms since I saw him yesterday in the emergency department. Exam Narrative Exam Narrative: No acute distress. Alert and oriented x3. Breathing comfortably without audible wheezing or distress. No work of breathing. Evaluation of the left leg shows mild hyperemia around the left hip itself which could be from recent cold pack application. No significant swelling. No ecchymosis or bruising. No defects in the skin. Left leg is shortened and externally rotated. Objective Last Vital Signs Temp 36.1 C L 06/06/20 06:27 Pulse 51 L 06/06/20 06:27 Resp 19 06/06/20 06:27 BP 144/86 H 06/06/20 06:27 Pulse Ox 98 06/06/20 06:27 Laboratory Results - last 24 hr 06/05/20 06/05/20 06/05/20 15:30 15:30 15:30 WBC 16.26 H RBC 4.58 Hgb 14.6 Hct 42.6 MCV 93.0 MCH 31.9 MCHC 34.3 RDW 13.1 Plt Count 302 MPV 9.9 Immature Gran % 0.4 Neutrophils % 79.9 Lymphocytes % 11.4 Monocytes % 7.4 Eosinophils % 0.7 Basophils % 0.2 Nucleated RBC % 0 Absolute Neutrophils 12.99 H Absolute Lymphocytes 1.85 Absolute Monocytes 1.20 H Absolute Eosinophils 0.11 Absolute Basophils 0.03 PT 10.4 INR 1.0 APTT 25.6 Sodium 141 Potassium 3.5 Chloride 105 Carbon Dioxide 26.8 Anion Gap 9.2 BUN 13 Creatinine 0.9 Estimated GFR/1.73 m2 >= 60.00 Glucose 98 Calcium 9.4 Total Bilirubin 0.5 AST 15 ALT 21 Alkaline Phosphatase 71 Total Protein 8.1 Albumin 4.2 COVID-19 Source SARS-CoV-2 (PCR) 06/05/20 17:15 WBC RBC Hgb Hct MCV MCH MCHC RDW Plt Count MPV Immature Gran % Neutrophils % Lymphocytes % Monocytes % Eosinophils % Basophils % Nucleated RBC % Absolute Neutrophils Absolute Lymphocytes Absolute Monocytes Absolute Eosinophils Absolute Basophils PT INR APTT Sodium Potassium Chloride Carbon Dioxide Anion Gap BUN Creatinine Estimated GFR/1.73 m2 Glucose Calcium Total Bilirubin AST ALT Alkaline Phosphatase Total Protein Albumin COVID-19 Source Nasopharyx SARS-CoV-2 (PCR) Negative
[2020-06-06] MEDS: Acetaminophen 500 MG TAB 1000 MG PO ×3 (09:29→22:15)
[2020-06-06] MEDS: ceFAZolin 2 GM/50 ML BAG IVPB (12:13)
[2020-06-06] MEDS: Normal Saline 100 ML 500 ML (12:23)
[2020-06-06] MEDS: Tranexamic Acid 1,000 MG/10 ML VIAL 1000 MG (12:23)
--- NOTE | 2020-06-06 13:35 | DI.RAD_ITS ---
EXAM: XR HIP LT IN OR CLINICAL HISTORY: LEFT HIP FRAACTURE. TECHNIQUE: 2D and realtime digital imaging was performed. COMPARISON: CR XR FEMUR LT from 06/05/2020 CR XR PELVIS AP from 06/05/2020 FINDINGS: Fluoroscopy was provided in the OR for Dr. Vasques. Hard copy image shows placement of a total hip prosthesis. The alignment appears satisfactory. Please see procedure note for details. Fluoro time: 44.6 seconds RADIATION DOSE DELIVERED: Ka,r= mGy
--- NOTE | 2020-06-06 13:49 | ROE_ITS ---
Date of service: 06/06/20 Time of Service: 13:49 Operative Note Operative Note DATE OF PROCEDURE: 06/06/20 PRE-OP DIAGNOSIS: Left Femoral Neck Fracture POST-OP DIAGNOSIS: same PROCEDURE: Left Anterior Total Hip Arthroplasty SURGEON: Omid Vasques LIVESTOCK JUDGING COACH: Rosalia Marr ANESTHESIA TYPE: General LMA/ETT Refer to Anesthesia Record ESTIMATED BLOOD LOSS: 400 PATHOLOGY: none sent TOURNIQUET TIME: 0 COMPLICATIONS: None Patient was transported to: PACU Patient's condition: stable Implants: 1. Depuy Fountain Acetabular Component, 54mm 2. Depuy Acetabular Liner, [id number] 3. Depuy Corail High Offset Collared Femoral Stem, Size 13 4. Depuy Altrx Ceramic Femoral Head, Size 36+5mm Indications: I have seen Babak in the Emergency Department for a displaced femoral neck fracture of the left hip. He also had premorbid pain in addition to the displaced fracture so I recommended a hip replacement. I discussed the technical details of a hip replacement. I explained the risks of the procedure to include, but not limited to, bleeding, infection, pain, stiffness, fracture, damage to nerves and vessels, damage to muscles and tendons, loosening, instability, leg length inequality, need for repeat procedure, blood clot and cardiopulmonary demise. Despite these risks, Babak elected to proceed. Findings: The bone quality of the proximal femur was quite poor. I was unable to remove the head or the fracture fragments with anything except a rongeur piecemeal. The cartilage was delaminated from the femoral head and the entire femoral head was soft and pliable. The bone was quite soft in this area representing something like an osteonecrotic process. The cancellous bone proximally was quite poor but yet the cortical bone below the lesser trochanter was quite dense. I reamed his femur with flexible reamers up to 14 mm. Given there is still some minor gap, 2 to 3 mm, around the proximal aspect of the broach I used autograft collected from the reamings and placed this around the stem. It was rotationally stable. Procedure Description: Babak was greeted in the preoperative holding area where the correct side was identified and marked. The consent was reviewed with the patient and signed. The history and physical was updated. All questions were answered. He was taken back to the operating room. A general anesthetic was administered. The feet were wrapped with cast padding and Coban and then placed into the boot liners and then into the boots. Care was taken to protect the skin and make sure the heels were fully down and the boots were stable. The patient was then positioned onto the HANA table. Both legs were held in a neutral position. SCDs were applied. The patient was then slid down onto a peroneal post. Proph ylactic antibiotics in the form of Cefazolin were administered. 1g of Tranxemic Acid was given intravenously within 30 minutes of incision. The fracture was reduced with manipulation of the leg to help with templating and intraoperative navigation to assist with component positioning. Then, the left leg was prepped with Chloraprep and draped in a standard fashion. A second prep with Chloraprep was performed prior to placement of a shower-curtain type drape with Iodine impregnated skin protection. A timeout to confirm correct identity, side and site, procedure, allergies, anesthesia, and medical concerns was performed. An obliquely oriented incision was made starting lateral to the ASIS and running distal over the Tensor Fascia Brit (TFL) muscle belly toward the fibular head, approximately 10cm. The skin and soft tissue was dissected sharply, through Aneudy?s fascia, and to the fascia of the TFL. With the fascia and superior border of the IT band identified, the fascia was incised with a new knife just above any perforators from the IT band. The TFL muscle belly was bluntly dissected away from the fascia and moved laterally. The fat between TFL and rectus was identified to ensure the dissection was not within the TFL. Blunt dissection created space between abductors and the capsule and retractor was placed over the lateral femoral neck. The fibers of the rectus femoris tendon were identified and these were freed from the anterior capsule. A second cobra retractor was placed around the medial femoral neck. The TFL was further retracted laterally to show the deep fascia. Careful dissection through this layer identified three main crossing vessels of the lateral femoral circumflex. These were cauterized in multiple locations and then cut without any noticeable bleeding. The TFL was further released bluntly from the deep fascia to expose anterior hip capsule and fat The Yoav orthopaedic retractor was then placed beneath the TFL and against sartorius and medial soft tissues to protect and retract the soft tissues. A T-capsulotomy was then performed starting at the superior lateral acetabulum and moving distally to the intertrochanteric ridge. These capsular flaps were tagged with a No. 1 Ethibond and elevated from within. The capsular flaps were released to the shoulder of the lateral neck and to the lesser trochanter to give excellent visualization of the proximal femur. A neck osteotomy was performed using an oscillating saw based on preoperative templates. This cut started in the shoulder and of the lateral neck and exited medially. The saw was at all times directed medially to avoid injury to the greater trochanter. I applied some traction to the leg to remove the napkin ring osteotomy between my neck cut and the fracture, but unfortunately the bone was quite soft. I used a rongeur to remove the bone from this section. The femoral head was attempted to be removed with a corkscrew, however, it was too soft to hold the corkscrew, so the femoral head was removed in piecemeal. The femoral head was inspected and the bone was extremely soft and the cartilage was laminating off of the subchondral bone with the appearance of an osteonecrotic process. Traction was released after head removal. An anterior retractor was placed over the anterior wall between capsule and labrum and attached to the Gripper retraction system. The femur was rotated to 90 degrees and medial capsule was fully released until the lesser trochanter was palpable and visible; the femur was returned to 30 degrees. A posterior retractor was placed similarly between capsule and labrum. This provided excellent visualization. The contents of the cotyloid fossa were removed with electrocautery and the labrum was removed with a knife. Acetabular reaming began with a 52mm reamer. This first reaming was directed anterior to posterior and medial to get down to the true floor. This was inspected and reamed until the true floor was reached. The anterior retractor was then released and entry and exit was provided by traction on the capsular flaps. I then reamed sequentially up to a 54mm reamer where good fit was obtained. The larger reamers were oriented based on anatomical reference of the anterior and lateral dominguez to ensure proper abduction and anteversion. Positioning and size was confirmed with the fluoroscopy. A 54mm Depuy Fountain acetabular component was selected. The acetabulum was reamed around the periphery with the selected acetabular size to prevent a rim fit. The deep tissues were irrigated. The acetabular component was then impacted in a position of about 40-45 degrees of abduction and 15-20 degrees of anteversion, using the patient?s anatomy as the ultimate landmark. Fluoroscopy was used to confirm this. There was excellent tire cord weaver of the acetabular component and the inserting handle was removed. A primary acetabular screw was placed into the ilium by drilling through one of the holes in the acetabular component. This was measured and an approrpriately sized screw was placed with excellent purchase. It was checked not to be proud. A second screw was placed in a similar fashion. The acetabular liner, Depuy [id number] polyethylene liner, was inserted and lined up with the tines of the acetabular component. There was no soft tissue interposition. The liner was then impacted into position and confirmed to be well-seated. A portion of the elif-articular cocktail was then injected around the acetabulum into the capsule and periosteum. This cocktail consisted of 50cc of 0.25% Bupivicaine and 20cc of Exparel and 30mg of Ketorolac. The leg was rotated to 120 degrees. Any remaining medial capsule was released until the lesser trochanter was easily palpable. A retractor was placed medially. The lateral capsule was further released into the shoulder to allow access to the greater trochanter. A Mckeon retractor was placed over the greater trochanter which allowed the trochanter to flip in front of the capsule for excellent exposure. The leg was brought down into maximal extension and 20 degrees of adduction while ensuring there was no impingement on the acetabulum. Any remnant capsule within the trochanter was released. Piriformis and obturator externis were identified and protected. There was excellent access to the proximal femur. The lateral neck remnant was removed with a rongeur. A blunt canal probe was used to identify the canal and trajectory for later broaching. The bone in this region was quite poor with most of the cancellous bone peeling out of the cortical shell. A small curved rasp and a curved curette were used to work laterally. Broaching then began with a size 8 Corail broach. This was inserted manually around the trochanter and into the canal before mallet blows. The broach was seated to the neck cut levela few millimeters below the cut level based on the neck cut and the preoperative template. Sequential broaching was continued. However, it became apparent that there was a mismatch between the proximal femur and the femoral shaft. Therefore, I used a flexible reamer system to ream up to 14mm. I then continued broaching until there was good rotational control. There was still some space, 2-3mm, between the broach and the proximal femoral cortex. However, rotation was well controlled. A trial standard neck was inserted along with a +8.5 trial head. The leg was brought out of extension and adduction and then reduced with traction and internal rotation. The leg was stable anteriorly in a position of 30 degrees of extension and 90 degrees of external rotation. Fluoroscopy was used to ensure there was no fracture and the stem was seated well. Leg lengths were checked with an AP pelvis and pelvic reference points. Local Eye Site navigation system was used to confirm appropriate positioning and leg length and offset. This navigation system suggested that we had too much leg length and appropriate offset, but by going to the high offset stem with a smaller head option, the offset and leg length would be more appropriate. Once content with the desired offset and leg lengths, the leg was brought back into extension, external rotation and adduction. The periosteum and surrounding tissue was injected with remaining portion of the elif-articular cocktail. The proximal femur was irrigated as well as the deep tissues. The [employer] Corail High Offset collared stem, size 13, was then manually inserted into the proximal femur making sure to control rotation. It was then malleted into position with light blows, giving breaks to allow bone expansion and decrease risk of fracture. As it was being impacted, bone graft was impacted around the proximal femoral component. This was autograft retrieved from reamings and broaching. The selected Depuy Altrx Ceramic Head, size 36+5mm, was then placed onto the clean and dry trunnion and secured with impaction onto the tapered fit. The leg was brought back out of extension and adduction and reduced with traction and internal rotation. Stability was confirmed with no shuck at 90 degrees of external rotation and 30 degrees of extension. No impingement through range of motion arc. Final x-ray images were obtained with fluoroscopy to confirm adequate positioning and no intraoperative fracture. The deep tissues were thoroughly irrigated with Irrisept chlorhexadine solution. The capsule was then reapproximated with the previously placed Ethibond sutures. The TFL fascia was finally closed with a No. 2 Stratafix, barbed suture. Deep tissues were then reapproximated with 0 Vicryl and a running 2-0 Vicryl. The skin was closed with a running 4-0 Monocryl in a subcuticular fashion. This was reinforced with skin glue. A Mepilex silver dressing was applied. At the end of the case, all counts were correct. Babak was transferred to the hospital bed without difficulty and suffering no apparent complication. Babak has a good prognosis. Physical therapy will start today and without restrictions, weight-bearing as tolerated. Aspirin 81mg BID will be used for DVT prophylaxis.
--- NOTE | 2020-06-06 15:31 | IN_ITS ---
Date of service: 06/06/20 Time of Service: 15:00 PT Notes Visit Reasons: LEFT FEMORAL NECK FRACTURE Inpatient Physical Therapy Evaluation Date: 06/06/20 Referring Doctor: Dr. Vasques PT Orders: PT CONSULT: s/p anterior left DEE Precautions: fall, standard Patient Profile/Admitting Diagnosis: Patient admitted 06/05/20 after fall resulting in left subcapital hip fx. He underwent left DEE via anterior approach, now PO day 0. PMHX: Hypertension Osteogenesis imperfecta Tobacco abuse Surgical History Cubital tunnel syndrome on left s/p Decompression 02/21/2019 Cubital tunnel syndrome on right s/p Decompression 04/04/2019 Fracture of middle phalanx of finger of left hand (06/02/15) little finger treated with pins Social History/Home Situation: Patient lives alone in an upper level apartment, with 20 outdoor steps to enter, bilateral rails. He works in manufacturing, on his feet for most of the day. Does not typically utilize any type of assistive device, although has been using a cane for the past 3-4 weeks due to hip pain, preceding his fracture. His mother is present at time of consult, and both she and Babak report lots of family support when he returns home. Equipment Owned/DME: cane, crutches Subjective: Babak states that he's a little nervous about getting up. His hip had been getting progressively more painful leading up to his fall. Objective: General Observation: Resting in bed, Siddiqi catheter in place. Mental Status: A&Ox3 Pain: 0/10 ROM: Right Upper Extremity: WFL Left Upper Extremity: WFL Right Lower Extremity: WFL Left Lower Extremity: hip flexion to 80 degrees or greater, knee and ankle motion WFL Strength: Right Upper Extremity: grossly WFL Left Upper Extremity: grossly WFL Right Lower Extremity: Hip flexion 5/5. Quads 5/5. Ankle DF 5/5 Left Lower Extremity: Quads 3/5 or greater. Ankle DF 3/5 or greater. Sensation: intact distally Bed Mobility/Transfers: supine-sit: supervision sit-stand: CGA stand-sit: CGA Gait: Patient ambulates 6' with FWW and CGA. He requires cues for technique and equipment management, with demonstration of slow, shuffling gait and obvious apprehension. Balance: Static Sitting: normal Dynamic Sitting: good Static Standing: fair Dynamic Standing: fair Special Tests: Mobility Limitations Standardized Measure [facility] AM-PAC 6 clicks Basic Mobility Inpatient Short Form: Raw Score: 20 CMS Score: 36% deficit Informed Consent/Education: Patient instructed in purpose of PT consult and plan of care. Assessment: Patient is a 45 year old male referred to physical therapy services with the diagnosis of left hip fracture, PO day 0 from anterior DEE. Patient presents with clinical signs and symptoms consistent with diagnosis, as demonstrated by the following impairment level findings: 1. Decreased activity tolerance 2. Decreased LLE strength Impairments are contributing to the following functional limitations: 1. unable to manage stairs 2. unable to tolerate community distance ambulation Patient is assessed as Low [id number] complexity based on the following: History: 45 year old male PO day 0 left anterior DEE. Complicating medical factors include osteogenesis imperfecta, ongoing tobacco use, and HTN. Social factors include patient living alone with [address] home. Examination: functional limitations as noted above Presentation: stable Decision Making: low complexity Goals: Goals X1 week 1. Supine-Sit : supervision 2. Sit-Supine : supervision 3. Sit-Stand : supervision 4. Stand-Sit: supervision 5. Bed-Chair : supervision with FWW 6. Chair-Bed : supervision with FWW 7. Gait : supervision with FWW x 50' 8. Stairs : : supervision with bilat rails, 6 steps Plan of Care/Treatment Plan: 1-2x/day, 7 days/week x 1 week. Plan of care has been reviewed with the TRUCK BODY BUILDER APPRENTICE providing the service under Physical Therapy direction. Initiate Physical Therapy intervention for strengthening, bed mobility, transfers, gait, stairs, balance training, use of assistive device. DISCHARGE RECOMMENDATIONS: home with FWW TREATMENT CODE/TIME: 3:00-3:30 ([id number]) Claudia Campoverde, PT, DPT [facility]
--- NOTE | 2020-06-06 15:49 | NUR.NOTE ---
Nursing Note: 1505: pt returns from OR post L hip replacement via pt bed. pt alert/oriented x 3, denies pain, VSS; see EMAR for further information. lema draining clear yellow urine, PT in to work with pt immediately upon return to room.
--- NOTE | 2020-06-06 15:54 | INITIAL_ITS ---
- If Service Date Differs Date of service: 06/06/20 Time of Service: 15:54 Care Management Initial Assess REASON FOR HOSPITALIZATION:: Left Femoral Neck Fracture PAST MEDICAL HISTORY/PAST SURGICAL HISTORY:: Medical History. Hypertension. Osteogenesis imperfecta. Tobacco abuse. Surgical History. Cubital tunnel syndrome on left. s/p Decompression 02/21/2019. Cubital tunnel syndrome on right. s/p Decompression 04/04/2019. Fracture of middle phalanx of finger of left hand (06/02/15). little finger. treated with pins PREVIOUS FUNCTIONAL STATUS/SOCIAL/FAMILY SUPPORTS:: Babak lives in [place], alone. His 19 year old son spends time with him occasionally, but is independent and works while taking college courses. Babak works at [employer]. He has family that lives close to him. He is independent at [employer]. CURRENT FUNCTIONAL STATUS:: Babak was lying in bed when CM met with him. He reported that he is doing well, although he is a little nervous for his surgery which will happen this afternoon. He reported that he has a medical condition which makes his bones weak and prone to fracture, so this is not his first fracture, but one of the most major fractures that he has had. He stated that he is hoping to be discharged later today, but may have to stay another night, per MD. CM will continue to follow. ADVANCE DIRECTIVES:: None on file. CM will offer forms. Has patient been provided with info about the portal/API?: Yes Did the patient sign up for the portal?: No CODE STATUS:: Full Code INSURANCE COVERAGE / FINANCIAL ISSUES:: [employer] CURRENT HOME/COMMUNITY SERVICES/EQUIPMENT:: No services or equipment. PRIMARY CARE PHYSICIAN:: Sarah Rosales POTENTIAL DISCHARGE NEEDS:: Follow up appointments. PATIENT/FAMILY EDUCATION NEEDS:: Review discharge instructions regarding activity levels and medications, discussion of self care needs. ANTICIPATED BARRIERS TO DISCHARGE:: None identified. TRANSPORTATION:: Via private vehicle by family. PLAN:: Babak will go to the OR today for a hip replacement. He will likely return home when medically cleared. His son/father will drive him home via private vehicle. He will follow up with Ortho, his PCP, and his discharge plan of care. CM will continue to follow.
[2020-06-06] MEDS: HYDROmorphone 2 MG/ML VIAL 0.5 MG IVP (18:38)
[2020-06-06] MEDS: Aspirin E.C. 81 MG TABEC PO (22:16)
[2020-06-06] MEDS: oxyCODONE 5 MG TAB PO (23:58)
[2020-06-07] VITALS: BP 133/81; PULSE 70; RESP 16; TEMP 36.3; O2SAT 99
[2020-06-07 04:45] VITALS: BP 134/72; PULSE 65; RESP 16; TEMP 36.2; O2SAT 97
[2020-06-07] MEDS: oxyCODONE 5 MG TAB PO (06:53)
[2020-06-07] MEDS: Ketorolac 15 MG/ML VIAL IVP (07:04)
[2020-06-07] MEDS: Acetaminophen 500 MG TAB 1000 MG PO (07:54)
[2020-06-07] MEDS: Polyethylene Glycol 3350 17 GM PACKET PO (07:55)
[2020-06-07] MEDS: Aspirin E.C. 81 MG TABEC PO (07:55)
--- NOTE | 2020-06-07 08:26 | W.PM.DS.N ---
Date of service: 06/07/20 Time of Service: 08:29 DS: Diagnosis Discharge Diagnosis (1) Closed subcapital fracture of neck of left femur: Status: Acute Discharge Plan Disposition Patient Disposition: HOME W/HOME HEALTH SERVICE Condition: Improving Discharge Details Reason For Visit: LEFT FEMORAL NECK FRACTURE Admit Date/Time: 06/05/20 17:24 Admit Provider: Omid Vasques Attending Provider: Omid Vasques Primary Care Provider: Sarah Rosales Hospital Course Hospital Course: Patient was admitted to the medical/surgical floor from the Emergency Department for a left femoral neck fracture. Anterior hip replacement was performed on HD#2. The surgery was tolerated well without any notable medical, surgical, or anesthetic complications. Mobilization began postoperatively. He was voiding spontaneously after lema removal. Vitals were stable. Physical therapy worked with the patient and was cleared for discharge home. No acute medical issues. Pain was controlled on oral regimen. Home Meds and New Rx's Prescriptions: New acetaminophen 500 mg tablet 1,000 mg PO Q8H PRN (Reason: pain) Qty: 90 RF: 3 aspirin 81 mg tablet,delayed release (DR/EC) 81 mg PO BID Qty: 60 RF: 0 docusate sodium [Colace] 100 mg capsule 100 mg PO BID PRNQty: 10 RF: 0 oxycodone 5 mg tablet 5 mg PO Q6H Qty: 10 RF: 0 pantoprazole 40 mg tablet,delayed release (DR/EC) 40 mg PO DAILY Qty: 30 RF: 0 Continued naproxen sodium [Aleve] 220 mg capsule 440 mg PO BID PRNRF: 0 Discharge Instructions Additional Instructions: Dr. Vasques's Total Hip Discharge Instructions Activity: The most important activity is to walk. You should try to take short walks a few times a day. You have no restrictions on movement or positioning, but do not try to force what you do. You will find some stiffness and weakness with hip flexion (lifting your knee). Do not try to strengthen this too early, continue to practice walking and stairs and this will come. - Given your fracture and the debilitation leading up to it, I have prescribed home health physical therapy. - You should wear the WAYNE hose on both legs for 2 weeks. You may remove those at night. These prevent blood pooling and swelling. Dressing: Keep the surgical dressing in place for at least one week, although it may stay in place untill follow-up. It may get wet after 3 days but avoid soaking the dressing. If it gets wet, just lightly pat dry. Most people prefer to cover the dressing with some ClingWrap, Saran Wrap, to keep it dry. After the first week it may be removed if desired and then replaced with light gauze and tape or nothing. It is important to always keep some gauze or the dressing between skin folds, especially when you are sitting, so the incision is not folded over on itself at the belly fold. Medications: - You should take Tylenol and an anti-inflammatory Aleve as your primary pain control medications - You have been prescribed a stronger pain medication Oxycodone for breakthrough pain, take as needed as prescribed. - You have also been prescribed a stomach acid reduction agent Pantoprozole to help reduce stomach acid and reflux. - You will be taking Aspirin 81mg twice a day for DVT prevention unless instructed otherwise. - If you have constipation you should take Colace or Miralax (both [id number]). It takes most people 3-4 days to have a bowel movement. Follow-up: 2-4 weeks. If you have any acute concerns or questions, please do not hesitate to contact the office at [phone]. You may contact Dr. Vasques with any questions after hours through the hospital at [phone] or on his cell phone at [phone]. 1. Encounter Date and Reason I certify that BABAK ALDRIDGE was seen by Omid Vasques MD on 06/07/20 and that I had a [id number] encounter with this patient that meets the physician face to face encounter requirements. 2. Clinical Findings Supporting Skilled Need and Homebound Status I certify that home health services are medically necessary, include either intermittent chcf and/or physical/speech therapy, and that this patient is homebound in that absences from the home require considerable and taxing effort and are infrequent or of short duration, or are attributable to the need to receive medical care. [X] (a) Attached documentation from encounter provides clinical findings supporting skilled need and homebound status (including what assistance patient requires to leave the home). The encounter with the patient was in whole, or in part, for the following medical condition, which is the primary reason for home health care: LEFT FEMORAL NECK FRACTURE Correction: Physical Therapy: Babak will benefit from physical therapy to address his weakness, gait abnormalities, and pain s/p left anterior hip replacement. He is WBAT with assistive devices as needed. He has no positioning restrictions. Speech Therapy: Homebound: Babak is homebound. He cannot leave his home unassisted due to weakness and gait abnormalities. 3. Certification and Authentication I certify that I composed the above information based on my clinical judgement relating to this patient's medical condition and, if applicable, clinical findings communicated to me by the NPP or inpatient physician who performed the Home Health Referral. All further orders will be obtained through Dr. Vasques Referrals: Omid Vasques MD [ [facility] STAFF PHYSICIAN] - Activity:: Activity as Tolerated Equipment/Supplies:: Walker Diet:: As Tolerated Discharge Orders Discharge Orders: Discharge Order (Routine); Ordered 06/07/20 Ordered By: Omid Vasques DS: Summary Time Spent with Patient providing and/or coordinating discharge services: Less than 30 minutes Status at Discharge Functional status at discharge: uses cane/walker Overall status at discharge: patient is progressing back to baseline Mental Status: mental status grossly normal Speech and Movement: speech and movement normal Mood: congruent mood Affect: normal affect Exam Psych Mental Status: mental status grossly normal Speech and Movement: speech and movement normal Mood: congruent mood Affect: normal affect DS: Data Vitals/I&O Vitals and I&O: Vital Signs Temperature 36.2 C L 06/07/20 04:45 Temperature Source Tympanic 06/07/20 04:45 Pulse 65 06/07/20 04:45 Pulse Rhythm Regular 06/07/20 00:00 Pulse 78 06/05/20 18:31 Respiratory Rate 16 06/07/20 04:45 Respiratory Effort Non-Labored 06/07/20 00:00 Respiratory Depth Normal 06/07/20 00:00 Respiratory Pattern Normal 06/07/20 00:00 Blood Pressure 134/72 06/07/20 04:45 Blood Pressure Mean 104 06/05/20 18:31 Blood Pressure Position Supine 06/05/20 14:32 Pulse Oximetry 97 06/07/20 04:45 Respiratory End-tidal CO2 39 06/06/20 15:00 Oxygen Delivery Method Room Air 06/07/20 04:45 Oxygen Flow Rate 0 06/07/20 04:45 Pain Level 1 06/07/20 07:54 Comment 06/06/20 15:15 Intake & Output 06/06/20 06/06/20 06/07/20 11:59 23:59 11:59 Intake Total 60 / 2805.333 2745.333 / 2805.333 200 / 200 Output Total 2250 / 4225 1975 / 4225 450 / 450 Balance -2190 / -1419.667 770.333 / -1419.667 -250 / -250 Intake: IV 10 / 5.333 2465.333 / 2475.333 Oral 50 / 330 280 / 330 200 / 200 Output: Urine 2250 / 3825 1575 / 3825 450 / 450 Estimated Blood Loss 400 / 400 Other: Urine Color Yellow Yellow Yellow Urine Appearance Clear Clear Clear Sediment Urine Odor Normal Normal Comment urine has a strong odor Emesis Description None Voiding Methods Urinal Urinal Data Completed and Pending Labs on day of discharge: Labs from last 24 hours 06/06/20 10:31 Patient ABO/Rh O Positive Antibody Screen Negative [facility] Medical History Hypertension Osteogenesis imperfecta Tobacco abuse Surgical History Cubital tunnel syndrome on left s/p Decompression 02/21/2019 Cubital tunnel syndrome on right s/p Decompression 04/04/2019 Fracture of middle phalanx of finger of left hand (06/02/15) little finger treated with pins Social History Smoking/Tobacco Use Status: Current every day Tobacco: How many years used: 30 Smoking risk assessment performed?: Yes Alcohol Intake: current Alcohol Intake frequency: 0-2 drinks per day Alcohol type: beer Drug use: Never Substance use type: does not use current occupation: oil well service unit operator Current gender identity: male Seatbelt use: always Do you feel safe at home: Yes Do you feel safe in your relationship?: Yes
[2020-06-07 08:32] VITALS: BP 136/88; PULSE 70; RESP 18; TEMP 36.9; O2SAT 97
[2020-06-07 11:37] VITALS: BP 132/86; PULSE 60; RESP 18; TEMP 36.6; O2SAT 98
--- NOTE | 2020-06-07 17:29 | PDOC.CMDIS ---
- If Service Date Differs Date of service: 06/07/20 Time of Service: 17:29 LACE Index Scoring Tool - Questions: Length of Stay (in days): 2 Acuity (Admit via E.D.?): Yes E.D. Visits: 1 - Answers: Total Score: 6 Risk of Readmission: Low Risk Care Management Discharge Reason for Hospitalization: Left Femoral Neck Fracture Discharge Plan: Babak returned home today with new orders for HH PT. CM informed HC of his discharge, and faxed requested documents. Babak was provided with a FWW through [facility], coordinated by [facility]. His mother drove him home via private vehicle. He reported that he was feeling very good today and was happy to be going home. He will follow up with [facility], his PCP and discharge plan of care. Patient/Family Education Needs: Review discharge instructions regarding activity levels and medications, discussion of self care needs. Services Needed at Discharge: DME Agency ([facility]), Home Health Care Services ([facility])
--- NOTE | 2020-06-08 08:56 | PT.INTREAT ---
Date of service: 06/07/20 Time of Service: 08:30 PT Notes Visit Reasons: LEFT FEMORAL NECK FRACTURE Inpatient Physical Therapy Treatment Note [facility] Date: 06/07/20 SUBJECTIVE: Babak states that he is doing well this am. He feels ready to go home. OBJECTIVE: [] PAIN: reports zero BED MOBILITY/TRANSFERS Supine-sit: I Sit-supine: I Sit-stand:I Stand-sit: I GAIT Assistive Device: FWW Weight bearing: WBAT left Assist: SBA Distance: 200' STAIRS: negotiated clinic steps. up and down 3, 4 steps and 2, 6 steps. Using 2 rails in step to fashion, SBA. post op (DEE) pkt was given to him, for ther ex and transfer instructions. ASSESSMENT: functional mobility is fairly independent. No LOB noted. PLAN: pt d/c home later this pm. TREATMENT CODE/TIME: 20 min. [id number]
--- NOTE | 2020-06-09 09:33 | INDS_ITS ---
Date of service: 06/09/20 Time of Service: 09:33 PT Notes Visit Reasons: LEFT FEMORAL NECK FRACTURE Physical Therapy Inpatient Discharge Summary Date: 06/09/20 Dates of service: 06/06/2020 through 06/07/2020 This is a clinical summary of care provided on the duration of dates listed above. No charge was made in the completion of this documentation. Referring Doctor: Dr. Vasques PT Orders: PT CONSULT: s/p anterior left DEE Precautions: fall, standard Patient Profile/Admitting Diagnosis: Patient admitted 06/05/20 after fall resulting in left subcapital hip fx. He underwent left DEE via anterior approach, now PO day 0. PMHX: Hypertension Osteogenesis imperfecta Tobacco abuse Surgical History Cubital tunnel syndrome on left s/p Decompression 02/21/2019 Cubital tunnel syndrome on right s/p Decompression 04/04/2019 Fracture of middle phalanx of finger of left hand (06/02/15) little finger treated with pins Social History/Home Situation: Patient lives alone in an upper level apartment, with 20 outdoor steps to enter, bilateral rails. He works in manufacturing, on his feet for most of the day. Does not typically utilize any type of assistive device, although has been using a cane for the past 3-4 weeks due to hip pain, preceding his fracture. His mother is present at time of consult, and both she and Babak report lots of family support when he returns home. Equipment Owned/DME: cane, crutches Subjective: NT. See most recent [employer] notes. Objective: General Observation: NT. See most recent [employer] notes. Mental Status: NT. See most recent [employer] notes. Pain: NT. See most recent [employer] notes. ROM: Right Upper Extremity: WFL Left Upper Extremity: WFL Right Lower Extremity: WFL Left Lower Extremity: hip flexion to 80 degrees or greater, knee and ankle motion WFL Strength: Right Upper Extremity: grossly WFL Left Upper Extremity: grossly WFL Right Lower Extremity: Hip flexion 5/5. Quads 5/5. Ankle DF 5/5 Left Lower Extremity: Quads 3/5 or greater. Ankle DF 3/5 or greater. Sensation: intact distally Bed Mobility/Transfers: supine-sit: supervision sit-stand: Supervision stand-sit: Supervision Gait: Patient ambulates 200 feet with FWW and SBA. He requires cues for technique and equipment management, with demonstration of slow, shuffling gait and obvious apprehension. He is also able to tolerate three 4 inch steps into 6 inch steps while holding onto bilateral rails with standby assist using step to gait pattern. Balance: Static Sitting: normal Dynamic Sitting: good Static Standing: fair Dynamic Standing: fair Assessment: Patient is a 45 year old male referred to physical therapy services with the diagnosis of left hip fracture, PO day 0 from anterior DEE. Patient is to present with clinical signs and symptoms consistent with diagnosis, as demonstrated by the following impairment level findings: 1. Decreased activity tolerance 2. Decreased LLE strength Impairments are continuing to contribute to the following functional limitations: 1. unable to manage stairs 2. unable to tolerate community distance ambulatio Goals: Goals X1 week 1. Supine-Sit : supervision MET 2. Sit-Supine : supervision MET 3. Sit-Stand : supervision MET 4. Stand-Sit: supervision MET 5. Bed-Chair : supervision with FWW 6. Chair-Bed : supervision with FWW 7. Gait : supervision with FWW x 50' NOT MET 8. Stairs : : supervision with bilat rails, 6 steps NOT MET DISCHARGE RECOMMENDATIONS: Home with FWW TREATMENT CODE/TIME: NC Thank you for the opportunity to participate in the care of this patient. Jaz Nicolas PT, DPT, CLT [facility] [place], [place]
== END 2020-06-07 13:14 | disposition home health service (06) | DRG 522 ==
LOC: ER 18:36 → MS 19:45
PROVIDERS: Physician Assistant; Admitting Provider Student in an Organized Health Care Education/Training Program; Emergency Provider Physician Assistant; PCP Physician Assistant Medical; Visit Provider Student in an Organized Health Care Education/Training Program
PROC: 0SRB04A Replacement of Left Hip Joint with Ceramic on Polyethylene Synthetic Substitute, Uncemented, Open Approach (ICD-10-PCS; CPT 27130; principal; 2020-06-06 12:00)
DX: S72.012A Unspecified intracapsular fracture of left femur, initial encounter for closed fracture (principal); Q78.0 Osteogenesis imperfecta; W01.0XXA Fall on same level from slipping, tripping and stumbling without subsequent striking against object, initial encounter; F17.210 Nicotine dependence, cigarettes, uncomplicated; I10 Essential (primary) hypertension; Z20.822 Contact with and (suspected) exposure to COVID-19
CPT/HCPCS: 27130; 20985; 36415; 51702; 64450; 73552; 76942; 80053; 86850; 86900; 86901; 87635; 90471; 93005; 96361; 96374; 96375; 96376; 97161; 97530; 99233; 99253; 99285; NC; 72170; 73501; 85025; 85610; 85730; 93010; J0690; J1100; J1885; J2001; J2405; J2704; J3010

== ENCOUNTER 2020-07-04 09:46 | Outpatient (CLI) | payer OTHER, SELFPAY ==
--- NOTE | 2020-07-04 08:45 | DI.RAD_ITS ---
Exam(s) XR HIP LT COMPLETE AP PELVIS EXAM: XR HIP LT COMPLETE AP PELVIS CLINICAL HISTORY: 1st post op L DEE TECHNIQUE: COMPARISON: CR XR PELVIS AP from 06/05/2020 FINDINGS: Two views were obtained and show total hip joint replacement in position on the left. The components appear fairly well seated. No other significant bony abnormality seen. IMPRESSION: RADIATION DOSE DELIVERED: Total DLP
== END 2020-07-04 09:47 | disposition home or self-care (01) ==
LOC: DIORS 09:47
PROVIDERS: PCP Physician Assistant Medical; Referring Provider Physician Assistant Medical; Visit Provider Physician Assistant Surgical
DX: Z96.642 Presence of left artificial hip joint (principal); Z47.1 Aftercare following joint replacement surgery
CPT/HCPCS: 73502

== ENCOUNTER 2021-06-15 08:43 | Outpatient (CLI) | payer BC, SELFPAY ==
--- NOTE | 2021-06-15 08:15 | DI.RAD_ITS ---
Exam(s) XR HIP LT AP LAT ONLY EXAM: XR HIP LT AP LAT ONLY INDICATION: annual F/U L DEE. COMPARISON: CR XR HIP LT COMPLETE AP PELVIS from 07/04/2020 TECHNIQUE: 2D digital imaging was performed. Two views. FINDINGS: There has been no change in the left total hip prosthesis or appearance of the surrounding bone. DATA REPOSITORY: RADIATION DOSE DELIVERED:
== END 2021-06-15 08:44 | disposition home or self-care (01) ==
LOC: DIORS 08:44
PROVIDERS: PCP Physician Assistant Medical; Referring Provider Physician Assistant Medical; Visit Provider Student in an Organized Health Care Education/Training Program
DX: Z96.642 Presence of left artificial hip joint (principal); Z47.1 Aftercare following joint replacement surgery
CPT/HCPCS: 73502